=== PATIENT | male | born 1950 | race Caucasian/White ===

== ENCOUNTER 2017-01-22 09:53 | Emergency (ER) | payer MEDICARE ==
[~2017-01-22] VITALS: Ht 180.3 cm; Wt 73.9 kg
[~2017-01-22 09:53] MED LIST: DIGO250T PO; EFAV1TAB PO; HYDR2TAB40 PO; METH10OR3 PO; METH40TA3 PO; METO25TA35 PO
[2017-01-22 10:05] VITALS: BP 143/85
[2017-01-22 11:18] LABS: BLOOD UREA NITROGEN 14 mg/dL (7-18)
== END 2017-01-22 11:53 | disposition home or self-care (01) ==
LOC: ED 11:47
DX: M79.661 Pain in right lower leg (principal); M79.662 Pain in left lower leg
CPT/HCPCS: 36415; 80048; 82040; 82550; 93970

== ENCOUNTER 2017-10-14 06:38 | Inpatient (IN) | payer MEDICARE ==
[~2017-10-14] VITALS: Ht 180.3 cm; Wt 81.0 kg
[2017-10-14] MEDS ORDERED: HYDROmorphone 2 MG/ML, 1ML ONE ×2 (06:58→09:13)
[2017-10-14] MEDS ORDERED: ONDANSETRON 2MG/ML, 2ML ONE ×2 (06:58→14:41)
[2017-10-14] MEDS ORDERED: ONDANSETRON 2MG/ML, 2ML IVPush ONE (07:00)
[2017-10-14] MEDS ORDERED: SODIUM CHLORIDE FLUSH 10ML SYR IVF ONE (07:00)
[2017-10-14] MEDS: HYDROmorphone 2 MG/ML, 1ML IVPush PRN ×2 (07:09→09:25)
[2017-10-14 07:13] LABS: HEMATOCRIT 44.6 % (39.2-51.8); HEMOGLOBIN 15.3 g/dL (13.7-18.0); WHITE BLOOD COUNT 7.9 x10^3/uL (3.4-10)
[2017-10-14 07:26] LABS: ASPARTATE AMINO TRANSFERASE 29 U/L (15-37); BLOOD UREA NITROGEN 18 mg/dL (7-18)
[2017-10-14] MEDS ORDERED: OMNIPAQUE 350 MG/ML, 100ML BOTTLE ONE (09:02)
[2017-10-14] MEDS ORDERED: METRONIDAZOLE PMX 500MG/100ML 100 ML IVPB ONE (10:00)
[2017-10-14] MEDS ORDERED: CEFOTETAN PMX 1GM/50ML 50 ML IV ONE (10:00)
[2017-10-14] MEDS ORDERED: SODIUM CHLORIDE 0.9% 1,000 ML IV ONE (10:04)
[2017-10-14] MEDS ORDERED: SODIUM CHLORIDE FLUSH 10ML SYR IVF PRN (10:30)
[2017-10-14] MEDS ORDERED: CEFOTETAN PMX 1GM/50ML 50 ML ONE (10:42)
[2017-10-14] MEDS ORDERED: DEXAMETHASONE 4 MG/ML, 1ML ONE (11:52)
[2017-10-14] MEDS ORDERED: SUCCINYLCHOLINE 20 MG/ML, 10ML ONE (11:52)
[2017-10-14] MEDS ORDERED: ROCURONIUM 10 MG/ML,10ML ONE (11:52)
[2017-10-14] MEDS ORDERED: PROPOFOL 10 MG/ML, 20ML ONE (11:52)
[2017-10-14] MEDS ORDERED: FENTANYL PF 250 MCG/5ML ONE (11:53)
[2017-10-14] MEDS ORDERED: METRONIDAZOLE PMX 500MG/100ML 100 ML ONE (12:14)
[2017-10-14] MEDS ORDERED: HYDROmorphone 1 MG/ML, 1ML ONE ×2 (12:14→13:26)
[2017-10-14] MEDS ORDERED: SODIUM CHLORIDE 0.9% 1,000 ML IV SCH (12:32)
[2017-10-14] MEDS ORDERED: PROMETHAZINE 25 MG/ML, 1ML IM PRN (13:00)
[2017-10-14] MEDS ORDERED: OXYcodone 5 MG/5 ML ORAL.SOL UDC PO PRN (13:00)
[2017-10-14] MEDS ORDERED: HYDROmorphone 1 MG/ML, 1ML IV PRN (13:00)
[2017-10-14] MEDS ORDERED: LABETALOL 5MG/ML, 20ML IV PRN (13:00)
[2017-10-14] MEDS ORDERED: ONDANSETRON 2MG/ML, 2ML IVPush PRN ×2 (13:00)
[2017-10-14] MEDS ORDERED: hydrALAzine 20 MG/ML, 1ML IV PRN (13:00)
[2017-10-14] MEDS ORDERED: HYDROmorphone 2 MG/ML, 1ML IVPush PRN (13:00)
[2017-10-14] MEDS ORDERED: FENTANYL PF 100 MCG/2ML ONE ×2 (13:48→14:03)
[2017-10-14] MEDS: FENTANYL PF 100 MCG/2ML IV PRN ×4 (13:50→14:40)
[2017-10-14] MEDS ORDERED: HYDROmorphone PCA 30 MG/30 ML ONE (14:02)
[2017-10-14] MEDS ORDERED: ONDANSETRON 2MG/ML, 2ML IV PRN (16:00)
[2017-10-14] MEDS ORDERED: HYDROmorphone 2 MG/ML, 1ML IV PRN (16:00)
[2017-10-14] MEDS ORDERED: PIPERACILLIN/TAZO/PMX 3.375GM 50 ML IV SCH (16:00)
[2017-10-14 20:42] VITALS: BP 147/67
[2017-10-14] MEDS: PIPERACILLIN/TAZO 3.375 GM in SODIUM CHLORIDE 0.9% 50 ML IV SCH (21:12)
[2017-10-15 00:10] VITALS: BP 114/65
[2017-10-15] MEDS: LACTATED RINGERS 1,000 ML IV SCH ×3 (03:06→23:23)
[2017-10-15] MEDS: PIPERACILLIN/TAZO 3.375 GM in SODIUM CHLORIDE 0.9% 50 ML IV SCH ×4 (03:06→21:01)
[2017-10-15 04:45] VITALS: BP 143/92
[2017-10-15 05:41] LABS: HEMATOCRIT 40.1 % (39.2-51.8); WHITE BLOOD COUNT 7.8 x10^3/uL (3.4-10)
[2017-10-15 05:57] LABS: ASPARTATE AMINO TRANSFERASE 24 U/L (15-37); BLOOD UREA NITROGEN 14 mg/dL (7-18)
[2017-10-15 07:18] VITALS: BP 155/94
[2017-10-15] MEDS: EFAVIRENZ/EMTRICITAB/TENOFOVIR 600MG-200MG-300MG TABLET PO SCH (08:20)
[2017-10-15] MEDS: PANTOPRAZOLE 40 MG IV IVPush SCH (08:20)
[2017-10-15 13:32] VITALS: BP 116/88
[2017-10-15 13:58] VITALS: BP 121/82
[2017-10-15] MEDS: HYDROmorphone PCA 30 MG/30 ML IV PRN (17:54)
[2017-10-15 19:09] VITALS: BP 111/72
[2017-10-16 01:08] VITALS: BP 128/78
[2017-10-16] MEDS: PIPERACILLIN/TAZO 3.375 GM in SODIUM CHLORIDE 0.9% 50 ML IV SCH ×4 (02:56→20:45)
[2017-10-16] MEDS ORDERED: BENZOCAINE 20% SPRAY 0.5ML TP ONE (05:00)
[2017-10-16 05:31] LABS: HEMATOCRIT 35.6 % (39.2-51.8); HEMOGLOBIN 12.5 g/dL (13.7-18.0); WHITE BLOOD COUNT 8.1 x10^3/uL (3.4-10)
[2017-10-16 05:52] LABS: ASPARTATE AMINO TRANSFERASE 22 U/L (15-37); BLOOD UREA NITROGEN 19 mg/dL (7-18)
[2017-10-16 06:26] VITALS: BP 144/76
[2017-10-16] MEDS: PANTOPRAZOLE 40 MG IV IVPush SCH (08:29)
[2017-10-16] MEDS: EFAVIRENZ/EMTRICITAB/TENOFOVIR 600MG-200MG-300MG TABLET PO SCH (08:47)
[2017-10-16] MEDS: LACTATED RINGERS 1,000 ML IV SCH ×2 (08:58→19:58)
[2017-10-16 12:16] VITALS: BP 115/89
[2017-10-16] MEDS: HYDROmorphone PCA 30 MG/30 ML IV PRN (13:52)
[2017-10-16 18:31] VITALS: BP 114/73
[2017-10-17 01:18] VITALS: BP 123/69
[2017-10-17] MEDS: PIPERACILLIN/TAZO 3.375 GM in SODIUM CHLORIDE 0.9% 50 ML IV SCH ×4 (03:39→22:19)
[2017-10-17 06:49] VITALS: BP 128/58
[2017-10-17 06:59] VITALS: BP 115/71
[2017-10-17] MEDS: PANTOPRAZOLE 40 MG IV IVPush SCH (07:30)
[2017-10-17] MEDS: EFAVIRENZ/EMTRICITAB/TENOFOVIR 600MG-200MG-300MG TABLET PO SCH (08:08)
[2017-10-17] MEDS: LACTATED RINGERS 1,000 ML IV SCH (08:19)
[2017-10-17] MEDS: HYDROmorphone PCA 30 MG/30 ML IV PRN (11:22)
[2017-10-17 13:35] VITALS: BP 111/66
[2017-10-17] MEDS ORDERED: LACTATED RINGERS 1,000 ML IV SCH (14:00)
[2017-10-17] MEDS: OXYcodone IR 5MG TABLET PO PRN ×2 (15:41→21:02)
[2017-10-17] MEDS: METHADONE 40 MG TABLET.SOL PO SCH (17:26)
[2017-10-17 20:15] VITALS: BP 117/72
[2017-10-18 02:21] VITALS: BP 138/82
[2017-10-18] MEDS: PIPERACILLIN/TAZO 3.375 GM in SODIUM CHLORIDE 0.9% 50 ML IV SCH ×3 (02:59→15:42)
[2017-10-18] MEDS: OXYcodone IR 5MG TABLET PO PRN ×3 (02:59→09:35)
[2017-10-18] MEDS: METHADONE 40 MG TABLET.SOL PO SCH ×2 (05:19→13:43)
[2017-10-18 07:40] VITALS: BP 138/68
[2017-10-18] MEDS: EFAVIRENZ/EMTRICITAB/TENOFOVIR 600MG-200MG-300MG TABLET PO SCH (07:54)
[2017-10-18] MEDS: PANTOPRAZOLE 40 MG IV IVPush SCH (07:54)
[2017-10-18] MEDS ORDERED: METHADONE 40 MG TABLET.SOL PO SCH (09:00)
[2017-10-18 14:00] VITALS: BP 126/60
[2017-10-18] MEDS ORDERED: DOCU-131 PO (16:56)
== END 2017-10-18 18:20 | disposition home or self-care (01) | DRG 326 ==
LOC: ED 08:09 → EDIP 10:04 → 4NOR 15:17
PROVIDERS: ADMIT Hospitalist; ATTEND Hospitalist
PROC: 0DN80ZZ Release Small Intestine, Open Approach (ICD-10-PCS; 2017-10-14)
PROC: 0DB60ZZ Excision of Stomach, Open Approach (ICD-10-PCS; principal; 2017-10-14 11:30)
DX: K56.0 Paralytic ileus (principal); K63.1 Perforation of intestine (nontraumatic); K66.8 Other specified disorders of peritoneum; B20 Human immunodeficiency virus [HIV] disease; F11.20 Opioid dependence, uncomplicated; E87.1 Hypo-osmolality and hyponatremia; K74.60 Unspecified cirrhosis of liver; B19.20 Unspecified viral hepatitis C without hepatic coma; R73.9 Hyperglycemia, unspecified; G89.29 Other chronic pain; K21.9 Gastro-esophageal reflux disease without esophagitis; K66.0 Peritoneal adhesions (postprocedural) (postinfection); K80.20 Calculus of gallbladder without cholecystitis without obstruction; Z80.9 Family history of malignant neoplasm, unspecified; Z87.891 Personal history of nicotine dependence
CPT/HCPCS: 36415; 74022; 74177; 80053; 81001; 83605; 83690; 83735; 84100; 85025; 87040; 88307; 88341; 88342; 96365; 96375; 96376; J1100; J1170; J2405; J2543; J2704; J3010; Q9967; C1765; C9113; G0461; J0330; J7030; J7120; S0074